=== PATIENT | female | born 1980 | race Caucasian/White ===

== ENCOUNTER 2017-09-06 08:10 | Emergency (ER) | payer BC ==
[2017-09-06] MEDS ORDERED: ONDANSETRON HCL INJ/PF 4 MG/2 ML SDV IV ONE (08:55)
[2017-09-06] MEDS ORDERED: NORMAL SALINE 1000 ML 1,000 ML IV ONE (08:55)
[2017-09-06] MEDS ORDERED: MORPHINE SULFATE 10 MG/ML INJ IV ONE (08:55)
--- NOTE | 2017-09-06 09:00 | ER Document Report ---
ED General - General Chief Complaint: Lower Abdominal Pain Stated Complaint: ABDOMINAL PAIN Time Seen by Provider: 09/06/17 08:46 TRAVEL OUTSIDE OF THE [place] IN LAST 30 DAYS: No - HPI Onset: This morning Onset/Duration: Gradual Quality of pain: Achy Severity: Moderate Exacerbated by: Movement Relieved by: Denies Notes: 37-year-old female history of endometriosis presents with right lower quadrant abdominal pain rating to the rectum. Patient has had several attacks of endometriosis in the past. States the Hallmark presentation is usually radiates to her rectum which this is doing she describes as aching her right lower quadrant rating to the rectum. Is not due to start her period till next week however she is very irregular. She denies any vomiting but has had nausea. Denies fever chills denies chest pain or shortness of breath. States she had a good large bowel movement last night. Has not been constipated. - Related Data Allergies/Adverse Reactions: No Known Allergies Allergy (Verified 09/06/17 08:11) Past Medical History - Social History Smoking Status: Never Smoker Family History: None Review of Systems - Review of Systems Cardiovascular: denies: Chest pain Gastrointestinal: Abdominal pain, Nausea. denies: Vomiting Genitourinary: denies: Dysuria, Hematuria Female Genitourinary: denies: Vaginal bleeding, Vaginal odor -: Yes All other systems reviewed and negative Physical Exam - Vital signs Vitals: Temp Pulse Resp BP Pulse Ox 98.2 F 101 H 20 134/82 H 99 09/06/17 08:14 09/06/17 08:14 09/06/17 08:14 09/06/17 08:14 09/06/17 08:14 - Notes Notes: GENERAL_APPEARANCE: well_nourished, alert, cooperative, there is uncomfortable VITALS: reviewed, see vital signs table. HEAD: no_swelling\tenderness on the head. EYES: PERRL, EOMI, conjunctiva_clear. NOSE: no_nasal_discharge. MOUTH: (-)decreased moisture. THROAT: no_throat_inflammation, no_airway_obstruction. no_lymphadenopathy NECK: supple, no_neck_tenderness, (-)thyromegaly. BACK: no_back_tenderness. CHEST_WALL: no_chest_tenderness. LUNGS: no_wheezing, no_rales, no_rhonchi, (-)accessory muscle use, good air exchange bilateral. HEART: normal_rate, normal_rhythm, normal_S1, normal_S2, (-)S3, (-)S4, no_ murmur, no_rub. ABDOMEN: normal_BS, soft, right lower quadrant_abd_tenderness, (-)guarding, (-) rebound, no_organomegaly, no_abd_masses. Rovsing sign negative obturator and psoas sign negative EXTREMITIES: good pulses in all_extremities, no_swelling\tenderness in the extremities, no_edema. SKIN: warm, dry, good_color, no_rash. MENTAL_STATUS: speech_clear, oriented_X_3, normal_affect, responds_ appropriately to questions. Course - Re-evaluation Re-evalutation: 09/06/17 08:59 37-year-old female patient is right lower quadrant pain rating to the rectum. Patient denies any rectal bleeding or otherwise. This does feel similar to prior attacks of endometriosis. However appendicitis is in the differential. Ovarian cyst is on the differential. The patient does not have the classic signs of tenderness McBurney's point for appendicitis Rovsing sign and obturator and psoas sign are negative. CT scan to further evaluate check urinalysis for infection. Blood work. We will give the patient IV fluids pain and nausea medicine. Will monitor her closely. 09/06/17 12:19 CT scan shows some fluid collection within the pelvis. This is likely to endometriosis the patient has she has no vaginal discharge or any recent activity that would put her at risk for pelvic inflammatory disease. She has no leukocytosis. Her exam was not reassuring for appendicitis and CAT scan does not support that. The patient will need to follow-up with her PRACTICE CLINICIAN physician - Vital Signs Vital signs: Temp Pulse Resp BP Pulse Ox 98.2 F 101 H 28 H 134/82 H 98 09/06/17 08:14 09/06/17 08:14 09/06/17 10:00 09/06/17 08:14 09/06/17 09:50 - Laboratory Result Diagrams: 09/06/17 09:45 09/06/17 09:45 Laboratory results interpreted by me: 09/06/17 09/06/17 09:45 09:55 Chloride 108 H Carbon Dioxide 19 L Total Protein 8.5 H Urine Blood SMALL H Urine Urobilinogen 2.0 H Ur Leukocyte Esterase TRACE H - Diagnostic Test Radiology reviewed: Image reviewed Radiology results interpreted by me: 09/06/17 12:19 Abdomen/Pelvis CT 09/06/17 08:55 IMPRESSION: Pelvic findings as noted above and a pelvic ultrasound may be of value for further evaluation. The appendix is somewhat difficult to delineate however there does not appear to be evidence for appendicitis. Clinical correlation is recommended. Other findings as noted above Discharge - Discharge Clinical Impression: Endometriosis Condition: Good Disposition: HOME, SELF-CARE Instructions: Endometriosis ([facility]) Additional Instructions: Please follow-up with your PRACTICE CLINICIAN physician --our suspicion is low for any kind of other pathology however if you do not improve in the next 48-72 hours return to the ER to be rechecked if things get worse return as soon as possible Prescriptions: Tramadol HCl [Ultram 50 mg Tablet] 50 mg PO Q6HP PRN #30 tablet PRN Reason: Pain Scale Of 5
[2017-09-06 10:28] LABS: ALANINE AMINOTRANSFERASE 42 U/L (9-52); ALBUMIN 4.9 g/dL (3.5-5.0); ALKALINE PHOSPHATASE 71 U/L (38-126); ANION GAP 18 (5-19); ASPARTATE AMINO TRANSFERASE 27 U/L (14-36); BILIRUBIN,DIRECT 0.3 mg/dL (0.0-0.4); BILIRUBIN,TOTAL 0.4 mg/dL (0.2-1.3); BLOOD UREA NITROGEN 12 mg/dL (7-20); CALCIUM 9.9 mg/dL (8.4-10.2); CARBON DIOXIDE 19 mmol/L (22-30); CHLORIDE 108 mmol/L (98-107); GLUCOSE 106 mg/dL (75-110); LIPASE 96.3 U/L (23-300); POTASSIUM 4.2 mmol/L (3.6-5.0); SODIUM 144.6 mmol/L (137-145); TOTAL PROTEIN 8.5 g/dL (6.3-8.2)
[2017-09-06 10:29] LABS: APPEARANCE,URINE SLIGHTLY-CLOUDY; BILIRUBIN,URINE NEGATIVE (NEGATIVE); COLOR,URINE YELLOW; GLUCOSE, URINE NEGATIVE (NEGATIVE); KETONES,URINE NEGATIVE (NEGATIVE); LEUKOCYTE ESTERASE,URINE TRACE (NEGATIVE); NITRITE,URINE NEGATIVE (NEGATIVE); PROTEIN,URINE NEGATIVE (NEGATIVE); URINE SPECIFIC GRAVITY 1.025
[2017-09-06 11:03] LABS: ABSOLUTE EOSINOPHILS # (AUTO) 0.1 10^3/uL (0.0-0.6); ABSOLUTE LYMPHOCYTES (AUTO) 1.8 10^3/uL (0.5-4.7); ABSOLUTE MONOCYTES (AUTO) 0.4 10^3/uL (0.1-1.4); ABSOLUTE NEUT (AUTO) 7.4 10^3/uL (1.7-8.2); BASOPHILS % (AUTO) 0.3 % (0-2); EOSINOPHILS % (AUTO) 0.6 % (0-6); HEMATOCRIT 43.2 % (36.0-47.0); HEMOGLOBIN 14.8 g/dL (12.0-15.5); LYMPHOCYTES % (AUTO) 18.4 % (13-45); MEAN CORPUSCULAR HEMOGLOBIN 30.8 pg (27.0-33.4); MEAN CORPUSCULAR HGB CONC 34.2 g/dL (32.0-36.0); MEAN CORPUSCULAR VOLUME 90 fl (80-97); MONOCYTES % (AUTO) 4.1 % (3-13); PLATELET COUNT 210 10^3/uL (150-450); RED CELL DISTRIBUTION WIDTH 13.2 % (11.5-14.0); SEGMENTED NEUTROPHILS % (AUTO) 76.6 % (42-78); TOTAL CELLS COUNTED % (AUTO) 100 %; WHITE BLOOD COUNT 9.7 10^3/uL (4.0-10.5)
--- NOTE | 2017-09-06 11:44 | RADIOLOGY REPORT (SQ) ---
EXAM DESCRIPTION: CT ABD/PELVIS WITH IV ONLY COMPLETED DATE/TIME: 09/06/2017 11:03 am REASON FOR STUDY: RLQ ABD Pain COMPARISON: None. TECHNIQUE: CT scan of the abdomen and pelvis performed using helical scanning technique with dynamic intravenous contrast injection. No oral contrast. Images reviewed with lung, soft tissue, and bone windows. Reconstructed coronal and sagittal MPR images reviewed. Delayed images for evaluation of the urinary system also acquired. All images stored on PACS. All CT scanners at this facility use dose modulation, iterative reconstruction, and/or weight based d osing when appropriate to reduce radiation dose to as low as reasonably achievable (ALARA). [facility]: Dose Right [facility]: CareDose [facility]: Dose Right [facility]: Teradose 4D [facility]: RMI CONTRAST TYPE AND DOSE: contrast/concentration: Isovue 370.00 mg/ml; Total Contrast Delivered: 81.0 ml; Total Saline Delivered: 68.0 ml RENAL FUNCTION: None required. The patient is less than 50 years old. RADIATION DOSE: CT Rad equipment meets quality standard of care and radiation dose reduction techniq ues were employed. CTDIvol: 7.8 - 11.0 mGy. DLP: 1054 mGy-cm.. LIMITATIONS: None. FINDINGS: LOWER CHEST: No significant findings. No nodules or infiltrates. LIVER: Normal size. No masses. No dilated ducts. SPLEEN: Normal size. No focal lesions. PANCREAS: No masses. No significant calcifications. No adjacent inflammation or peripancreatic fluid collections. Pancreatic duct not dilated. GALLBLADDER: No identified stones by CT criteria. No inflammatory changes to suggest cholecystitis. ADRENAL GLANDS: No significant masses or asymmetry. RIGHT KIDNEY AND URETER: No solid masses. No significant calcifications. No hydronephrosis or hyd roureter. 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 LEFT KIDNEY AND URETER: No solid masses. No significant calcifications. No hydronephrosis or hydr oureter. AORTA AND VESSELS: No aneurysm. No dissection. Renal arteries, SMA, celiac without stenosis. RETROPERITONEUM: No retroperitoneal adenopathy, hemorrhage or masses. BOWEL AND PERITONEAL CAVITY: No masses or inflammatory changes. No free fluid or peritoneal masses. APPENDIX: The appendix is somewhat difficult to delineate however there does not appear to be evidenc e for appendicitis. PELVIS: There is a triangular appearing fluid collection in the left adnexal region measuring 3.3 x 1 .6 cm in diameters. The appearance would be atypical for a simple ovarian cyst and the possibility o f a paraovarian fluid collection or possible hydrosalpinx should be considered. A small fluid collec tion is identified adjacent to the bladder and inferior tip of the cecum on the right and there appea rs to be a complex fluid collection extending into the right pelvis. A component of free fluid is al so identified posteriorly in the pelvis. The possibility of pelvic inflammatory disease should be co nsidered. Pelvic ultrasound may be of value for further evaluation. ABDOMINAL WALL: No masses. No hernias. BONES: No significant or acute findings. OTHER: No other significant finding. IMPRESSION: Pelvic findings as noted above and a pelvic ultrasound may be of value for further evalu ation. The appendix is somewhat difficult to delineate however there does not appear to be evidence for appendicitis. Clinical correlation is recommended. Other findings as noted above TECHNICAL DOCUMENTATION: JOB ID: [id number] Quality ID # [id number]: Final reports with documentation of one or more dose reduction techniques (e.g., Au tomated exposure control, adjustment of the mA and/or kV according to patient size, use of iterative reconstruction technique) 2010 [employer]- All Rights Reserved Reading location - IP/workstation name: [email or web address]
[2017-09-06 13:14] VITALS: BP 107/78
== END 2017-09-06 13:27 | disposition home or self-care (01) ==
LOC: ER 08:10
DX: N80.0 Endometriosis of uterus (principal); R10.30 Lower abdominal pain, unspecified; R11.0 Nausea
CPT/HCPCS: 99284; 96361; 96374; 96375; 36415; 83690; 85025; 81025; 80053; 81001; 74177; J2270; J2405; J7030